=== PATIENT | female | born 1965 | race Caucasian/White ===

== ENCOUNTER 2019-07-13 15:23 | Outpatient (REF) | payer SELFPAY ==
[2019-07-13 17:48] LABS: Chol HDL Ratio 3.15 mg/dL (0.0-4.40); Cholesterol 192 mg/dL (0-200); Glucose 91 mg/dL (65-115); HDL Cholesterol 61 mg/dL (60-100); LDL Cholesterol Calculated 120 mg/dL (50-129); LDL HDL Ratio 1.97 RATIO (0.00-3.22); Triglycerides 56 mg/dL (0-150)
[2019-07-13 17:56] LABS: Estmated Average Glucose 108; Hemoglobin A1C 5.4 % (4.0-6.0)
== END 2019-07-13 15:24 | disposition home or self-care (01) ==
LOC: LAB 15:23
PROVIDERS: Visit Provider Dermatology
DX: Z13.9 Encounter for screening, unspecified (principal)
CPT/HCPCS: 80061; 82947; 83036; 84443

== ENCOUNTER → 2020-03-11 12:16 | Outpatient (BNVA) | payer OTHER, SELFPAY | PROVIDERS: Visit Provider Registered Nurse | DX: E03.9 Hypothyroidism, unspecified (principal); Z12.31 Encounter for screening mammogram for malignant neoplasm of breast; Z12.11 Encounter for screening for malignant neoplasm of colon; E66.9 Obesity, unspecified | CPT/HCPCS: 84439; 84480 ==

== ENCOUNTER → 2020-03-13 09:29 | Outpatient (BNVA) | payer OTHER, SELFPAY | PROVIDERS: Visit Provider Registered Nurse | DX: E03.9 Hypothyroidism, unspecified (principal); E66.9 Obesity, unspecified; Z12.31 Encounter for screening mammogram for malignant neoplasm of breast; Z12.11 Encounter for screening for malignant neoplasm of colon | CPT/HCPCS: 84443 ==

== ENCOUNTER 2020-05-02 08:55 | Outpatient (CLI) | payer OTHER, SELFPAY ==
--- NOTE | 2020-05-02 09:30 | MM_ITS ---
WS: [id number] Bilateral screening digital mammogram, 05/02/2020 Clinical Data: Screening mammogram Comparison: 09/09/2018, 11/26/2016, 07/31/2016, 05/22/2016, 04/18/2014, 01/12/2013, 12/01/2011. Findings: The breast parenchymal pattern shows fat replacement. No spiculated masses or clustered calcification s are seen. There are no secondary signs of carcinoma. There is a mole marker on the left breast. The re are lymph nodes in both axilla. MM/[id number] Impression: 1. Negative bilateral mammogram unchanged. 2. Recommend annual screening mammograms. BIRADS: 1-Negative FOLLOW UP: 1 Year Follow-up The CAD sample checker was used.
== END 2020-05-02 08:56 | disposition home or self-care (01) ==
LOC: RADSHAW 08:58
PROVIDERS: PCP Registered Nurse; Visit Provider Registered Nurse
DX: Z12.31 Encounter for screening mammogram for malignant neoplasm of breast (principal)
CPT/HCPCS: 77067

== ENCOUNTER → 2020-07-12 08:13 | Outpatient (BNVA) | payer OTHER, SELFPAY | PROVIDERS: PCP Registered Nurse; Visit Provider Dermatology | DX: Z13.6 Encounter for screening for cardiovascular disorders (principal) | CPT/HCPCS: 80061; 82947; 83036 ==

== ENCOUNTER → 2020-08-06 11:01 | Outpatient (BNVA) | payer SELFPAY | PROVIDERS: PCP Registered Nurse; Visit Provider Dermatology | DX: Z01.89 Encounter for other specified special examinations (principal); E03.9 Hypothyroidism, unspecified ==

== ENCOUNTER → 2020-11-05 11:49 | Outpatient (BNVA) | payer SELFPAY | PROVIDERS: PCP Registered Nurse; Visit Provider Dermatology | DX: E03.9 Hypothyroidism, unspecified (principal) ==

== ENCOUNTER → 2021-02-04 00:01 | Outpatient (BNVA) | payer SELFPAY | PROVIDERS: PCP Registered Nurse; Visit Provider Dermatology | DX: Z01.89 Encounter for other specified special examinations (principal); E03.9 Hypothyroidism, unspecified | CPT/HCPCS: 84439 ==

== ENCOUNTER → 2021-02-27 14:27 | Outpatient (BNVA) | payer OTHER, SELFPAY | PROVIDERS: PCP Registered Nurse; Visit Provider Internal Medicine | DX: E03.9 Hypothyroidism, unspecified (principal); Z90.09 Acquired absence of other part of head and neck; R63.5 Abnormal weight gain | CPT/HCPCS: 99214 ==

== ENCOUNTER → 2021-03-31 00:01 | Outpatient (BNVA) | payer OTHER, SELFPAY | PROVIDERS: PCP Registered Nurse; Visit Provider Registered Nurse | DX: Z20.822 Contact with and (suspected) exposure to COVID-19 (principal); Z11.52 Encounter for screening for COVID-19 | CPT/HCPCS: 87426; 87635 ==

== ENCOUNTER → 2021-10-28 09:18 | Outpatient (BNVA) | payer OTHER, SELFPAY | PROVIDERS: PCP Registered Nurse; Visit Provider Dermatology | DX: Z01.89 Encounter for other specified special examinations (principal) ==

== ENCOUNTER → 2021-12-30 08:17 | Outpatient (BNVA) | payer OTHER, SELFPAY | PROVIDERS: PCP Registered Nurse; Visit Provider Internal Medicine | DX: E03.9 Hypothyroidism, unspecified (principal) | CPT/HCPCS: 84439; 84443 ==

== ENCOUNTER → 2022-04-24 10:05 | Outpatient (BNVA) | payer OTHER, SELFPAY | PROVIDERS: PCP Registered Nurse; Visit Provider Internal Medicine | DX: E03.9 Hypothyroidism, unspecified (principal); Z90.09 Acquired absence of other part of head and neck | CPT/HCPCS: 84439; 84443 ==

== ENCOUNTER → 2022-07-28 09:05 | Outpatient (BNVA) | payer OTHER, SELFPAY | PROVIDERS: PCP Registered Nurse; Visit Provider Dermatology | DX: Z01.89 Encounter for other specified special examinations (principal) ==

== ENCOUNTER → 2022-11-11 08:11 | Outpatient (BNVA) | payer OTHER, SELFPAY | PROVIDERS: PCP Registered Nurse; Visit Provider Internal Medicine | DX: E03.9 Hypothyroidism, unspecified (principal) | CPT/HCPCS: 84439; 84443; 84480 ==

== ENCOUNTER → 2023-01-28 08:16 | Outpatient (BNVA) | payer OTHER, SELFPAY | PROVIDERS: PCP Registered Nurse; Visit Provider Registered Nurse | DX: L98.9 Disorder of the skin and subcutaneous tissue, unspecified (principal) | CPT/HCPCS: 88304 ==

== ENCOUNTER → 2023-01-30 12:36 | Outpatient (BNVA) | payer OTHER, SELFPAY | PROVIDERS: PCP Registered Nurse; Visit Provider Registered Nurse Neonatal Intensive Care | DX: M25.571 Pain in right ankle and joints of right foot (principal) | CPT/HCPCS: 73610 ==

== ENCOUNTER → 2023-04-02 10:51 | Outpatient (BNVA) | payer OTHER, SELFPAY | PROVIDERS: PCP Registered Nurse; Visit Provider Podiatrist Foot & Ankle Surgery | DX: S99.911A Unspecified injury of right ankle, initial encounter (principal); S93.401A Sprain of unspecified ligament of right ankle, initial encounter; S82.831A Other fracture of upper and lower end of right fibula, initial encounter for closed fracture; W17.2XXA Fall into hole, initial encounter | CPT/HCPCS: 73610 ==

== ENCOUNTER 2023-07-14 06:53 | Outpatient (CLI) | payer OTHER, SELFPAY ==
--- NOTE | 2023-07-14 07:15 | MR_ITS ---
WS: [id number] EXAMINATION: MR ankle RT wo con* [id number] ORDER DATE: 07/14/2023 7:04 AM COMPARISON: None. HISTORY: Right ankle pain CONTRAST: None. TECHNIQUE: Axial proton density fat sat, axial T1, sagittal proton density, sagittal STIR, coronal T2 fat sat, and coronal T1 sequences performed. After contrast, axial T1 fat sat, coronal T1 fat sat, and sagittal T1 fat sat were performed. FINDINGS: Again seen is the previously described tiny avulsion tip of the lateral malleolus. Plantar calcaneal spurring. Chronic well-corticated avulsion tip of the medial malleolus. Soft tissue edema overlying t he lateral malleolus. Small mild bone marrow edema tip of the lateral malleolus. Normal ankle mortise alignment. Normal bone marrow signal in the talar dome. Small ankle effusion. Fluid in the anterolateral gutter. Partial high-grade tear involving the ATF wi th associated fluid and edema. Tibiofibular ligaments are intact. Small amount of tenosynovitis along the distal peroneal tendon sheath and peroneal brevis. Tiny split tear involving peroneal brevis. Achilles is normal in appearance. Trace tenosynovitis tibialis posterior. Otherwise normal extensor a nd flexor compartment tendons. Normal bone marrow signal in the navicular. Normal talonavicular articulation. Normal talocalcaneal a rticulation. Cuboid is normal. Normal plantar fascia. IMPRESSION: 1. Tiny avulsion of the tip of the lateral malleolus with soft tissue edema about the lateral ankle. Small amount of edema in the distal lateral malleolus. 2. Fluid in the anterolateral gutter with partial high-grade tear involving the ATF with associated irregularity with fluid and edema. 3. Tibiofibular ligaments appear intact. 4. Small amount of tenosynovitis involving the distal peroneal tendon sheath and peroneal brevis. Ti ny split tear involving the peroneal brevis. 5. Trace tenosynovitis tibialis posterior. 6. Plantar calcaneal spurring. Normal aponeurosis. 7. Distal Achilles appears normal. 8. Tiny well-corticated avulsion tip of the medial malleolus.
== END 2023-07-14 06:54 | disposition home or self-care (01) ==
LOC: RAD 06:53
PROVIDERS: PCP Registered Nurse; Visit Provider Podiatrist Foot & Ankle Surgery
DX: M84.371A Stress fracture, right ankle, initial encounter for fracture (principal); M65.871 Other synovitis and tenosynovitis, right ankle and foot; X58.XXXA Exposure to other specified factors, initial encounter
CPT/HCPCS: 73721

== ENCOUNTER 2023-08-05 06:00 | Outpatient (RCR) | payer OTHER, SELFPAY | END 2023-08-15 23:59 | disposition home or self-care (01) | LOC: SPT 06:00 | PROVIDERS: Visit Provider Podiatrist Foot & Ankle Surgery | DX: S93.401D Sprain of unspecified ligament of right ankle, subsequent encounter (principal); X58.XXXD Exposure to other specified factors, subsequent encounter | CPT/HCPCS: 97110; 97161 ==

== ENCOUNTER 2023-08-16 06:00 | Outpatient (RCR) | payer OTHER, SELFPAY | END 2023-09-14 23:59 | disposition home or self-care (01) | LOC: SPT 06:00 | PROVIDERS: Visit Provider Podiatrist Foot & Ankle Surgery | DX: S93.401D Sprain of unspecified ligament of right ankle, subsequent encounter (principal); X58.XXXD Exposure to other specified factors, subsequent encounter; M25.371 Other instability, right ankle | CPT/HCPCS: 97110 ==

== ENCOUNTER 2023-09-15 06:00 | Outpatient (RCR) | payer OTHER, SELFPAY | END 2023-10-15 23:59 | disposition home or self-care (01) | LOC: SPT 06:00 | PROVIDERS: Visit Provider Podiatrist Foot & Ankle Surgery | DX: S93.401D Sprain of unspecified ligament of right ankle, subsequent encounter (principal); X58.XXXD Exposure to other specified factors, subsequent encounter | CPT/HCPCS: 97033; 97110; 97140 ==